=== PATIENT | female | born 1955 | race Caucasian/White ===

== ENCOUNTER 2017-12-09 08:49 | Outpatient (CLI) | payer MEDICARE, MEDICAID ==
--- NOTE | 2017-12-09 10:59 | RAD ---
RIGHT KNEE 4 VIEWS: Date: 12/09/17 HISTORY: 62-year-old female with history of primary osteoarthritis of both knees. Preoperative evaluation for knee replacement. FINDINGS: Tricompartment degenerative changes are noted of the right knee with some narrowing of the medial com partment in particular. No fracture or dislocation, or significant abnormal joint effusion. IMPRESSION: Tricompartment degenerative changes. No fracture or dislocation. POS: [facility]
[2017-12-09 11:09] LABS: #Basophils 0.1 thou/uL (0.0-0.2); #Eosinphils 0.2 thou/uL (0.0-0.7); #Lymphocytes 2.1 thou/uL (1.20-3.40); #Monocytes 0.4 thou/uL (0.11-0.59); #Neutrophils 5.2 thou/uL (1.40-6.50); %Basophils 1.3 % (0.0-1.0); %Lymphocytes 26.3 % (21.0-51.0); %Monocytes 5.5 % (0.0-10.0); %Neutrophils 64.9 % (42.0-75.0); Hemoglobin 14.1 g/dL (12.0-16.0); Mean Corpuscular HGB CONC 32.4 g/dL (32.0-36.0); Mean Corpuscular Hemoglobin 28.9 pg (27.0-31.0); Mean Corpuscular Volume 88.9 fl (81.0-99.0); Mean Platelet Volume 7.3 fL (7.4-10.4); Platelet Count 281 thou/uL (130-400); RBC Distribution Width 12.2 % (11.5-14.5); Red Blood Cell (RBC) Count 4.87 mill/uL (4.20-5.40)
--- NOTE | 2017-12-09 11:12 | RAD ---
LEFT KNEE 4 VIEWS: Date: 12/09/17 HISTORY: 62-year-old female with history of primary osteoarthritis in both knees. Preoperative evaluation for knee replacement. FINDINGS: Severe tricompartment arthrosis and degenerative changes are noted with marked narrowing, particularl y of the medial compartment. No acute fracture or dislocation. IMPRESSION: Severe tricompartment degenerative changes with marked narrowing medially. POS: [facility]
[2017-12-09 11:30] LABS: ALT (SGPT) 8 U/L (8-55); AST (SGOT) 9 U/L (5-34); Albumin 4.3 g/dL (3.4-4.8); Alkaline Phosphatase 90 U/L (40-150); Anion Gap 17 mmol/L (10-20); BUN (Urea Nitrogen) 11 mg/dL (9.8-20.1); Bilirubin, Total 0.5 mg/dL (0.2-1.2); Calc. Creatinine Clearance 0 mL/min (70-130); Calcium 9.4 mg/dL (7.8-10.44); Carbon Dioxide 25 mmol/L (23-31); Cardiac Risk 3.9 (Less than 4.5); Chloride 102 mmol/L (98-107); Cholesterol 169 mg/dl (< 200 Desired); Estimated GFR-MDRD 70; Globulin 2.8 g/dL (2.4-3.5); Glucose 169 mg/dL (80-115); HDL Cholesterol 43 mg/dL (>60 Neg Risk); LDL Cholesterol, Calculated 82 mg/dL; Potassium 4.8 mmol/L (3.5-5.1); Protein, Total 7.1 g/dL (6.0-8.3); Sodium 139 mmol/L (136-145); Triglycerides 221 mg/dL (Less than 150)
[2017-12-09 16:57] LABS: Hemoglobin A1c 6.4 % (4.0-6.0)
[2017-12-09 17:16] LABS: Creatinine, Urine 157.33 mg/dL (47-110); Microalbumin Urine Less than 5.0 mg/dL (0.5-50.0)
== END 2017-12-09 08:50 | disposition home or self-care (01) ==
LOC: MADLABBHPM 08:49
PROVIDERS: ATTEND Family Medicine
DX: M17.0 Bilateral primary osteoarthritis of knee (principal); K21.9 Gastro-esophageal reflux disease without esophagitis; E78.2 Mixed hyperlipidemia; E11.65 Type 2 diabetes mellitus with hyperglycemia; I10 Essential (primary) hypertension
CPT/HCPCS: 36415; 73565; 80053; 80061; 82043; 83036; 85025

== ENCOUNTER 2018-05-18 10:12 | Outpatient (CLI) | payer MEDICARE, MEDICAID ==
--- NOTE | 2018-05-18 11:28 | RAD ---
PORTABLE AP CHEST RADIOGRAPH: Date: 05-18-18 History: Bronchitis. Recurrent dry cough. Comparison: 12-27-17 FINDINGS: Cardiac silhouette and pulmonary vasculature are within normal limits. Calcification again overlies t he left lower chest shown to represent a calcification within the left breast on prior PA and lateral chest radiograph. Lungs are clear. Degenerative changes are seen in the spine. There has been no int erval change compared to the prior study. IMPRESSION: 1. No acute cardiopulmonary process. 2. Stable appearing calcification overlying the region of the left breast. POS: [facility]
== END 2018-05-18 10:13 | disposition home or self-care (01) ==
LOC: MADLAB 10:12
PROVIDERS: ATTEND Family Medicine
DX: J40 Bronchitis, not specified as acute or chronic (principal); R05 Cough; R92.1 Mammographic calcification found on diagnostic imaging of breast
CPT/HCPCS: 71046

== ENCOUNTER 2018-12-18 08:15 | Outpatient (CLI) | payer MEDICARE, MEDICAID ==
--- NOTE | 2018-12-18 11:19 | CT ---
CT ABDOMEN AND PELVIS: 12/18/2018 HISTORY: Left-sided abdominal pain. Lower abdominal pain with weight loss. COMPARISON: 03/16/2018 TECHNIQUE: Axial CT imaging at 5 mm intervals, from the lung bases through the pubic symphysis, with IV and oral contrast. Coronal reformatted imaging obtained. FINDINGS: Imaged lung bases unremarkable. No free intraperitoneal air or fluid noted. The liver, gallbladder, spleen, pancreas, adrenal glands, and kidneys demonstrate no acute findings. The left kidney is mildly inferiorly malpositioned. There is a punctate, nonobstructing stone in th e mid pole of the right kidney. There are areas of mild cortical thinning involving the right kidney , suggesting prior insult. Findings are stable when compared to prior study. The uterus appears surgically absent. Sigmoid diverticulosis without evidence for diverticulitis. No evidence for bowel obstruction or bowel inflammatory change. There is mild atherosclerotic calcification of the infrarenal abdominal aorta. No lymphadenopathy is seen in the retroperitoneum, the pelvis, or the mesentery. Review of the osseo us structures demonstrates no worrisome lytic or blastic bone lesion. Multilevel lower lumbar spine facet hypertrophic change is seen. IMPRESSION: No acute findings. Incidental findings as detailed above. POS: [facility]
[2018-12-18] MEDS ORDERED: Iopamidol 370 76% 100 ML VIAL ONE (13:14)
== END 2018-12-18 08:16 | disposition home or self-care (01) ==
LOC: MADLAB 08:15
PROVIDERS: ATTEND Internal Medicine Gastroenterology
DX: R10.30 Lower abdominal pain, unspecified (principal); R19.5 Other fecal abnormalities; R63.4 Abnormal weight loss; R11.0 Nausea; R63.0 Anorexia
CPT/HCPCS: 36415; 74177; 82565; Q9967

== ENCOUNTER 2022-03-04 15:17 | Emergency (ER) | payer OTHER, MEDICAID | END 2022-03-04 17:19 | disposition home or self-care (01) | LOC: MADERS 15:17 | DX: S46.912A Strain of unspecified muscle, fascia and tendon at shoulder and upper arm level, left arm, initial encounter (principal); E11.9 Type 2 diabetes mellitus without complications; E78.5 Hyperlipidemia, unspecified; E78.00 Pure hypercholesterolemia, unspecified; Z79.899 Other long term (current) drug therapy; Z79.84 Long term (current) use of oral hypoglycemic drugs; W01.0XXA Fall on same level from slipping, tripping and stumbling without subsequent striking against object, initial encounter; Y92.009 Unspecified place in unspecified non-institutional (private) residence as the place of occurrence of the external cause ==

== ENCOUNTER 2023-08-16 11:42 | Emergency (ER) | payer MEDICARE, MEDICAID ==
[2023-08-16 12:49] LABS: SARS-CoV-2 NAA Rapid Test Not Detected (NotDetected)
== END 2023-08-16 13:08 | disposition home or self-care (01) ==
LOC: MADERS 11:42
DX: J20.9 Acute bronchitis, unspecified (principal); K21.9 Gastro-esophageal reflux disease without esophagitis; E11.9 Type 2 diabetes mellitus without complications; E78.00 Pure hypercholesterolemia, unspecified; Z79.84 Long term (current) use of oral hypoglycemic drugs; Z20.822 Contact with and (suspected) exposure to COVID-19; Z79.899 Other long term (current) drug therapy
CPT/HCPCS: 0240U; 99283